=== PATIENT | male | born 1945 | race Caucasian/White ===

== ENCOUNTER 2018-07-27 13:21 | Emergency (ER) | payer OTHER, MEDICAID ==
[2018-07-27 13:32] VITALS: TEMP 98
[2018-07-27 15:00] LABS: APPEARANCE,URINE Slightly Cloudy; BILIRUBIN,URINE NEGATIVE (NEGATIVE); COLOR,URINE Yellow; GLUCOSE, URINE (UA) NEGATIVE (NEGATIVE); KETONES,URINE NEGATIVE (NEGATIVE); LEUKOCYTE ESTERASE ,URINE 2+ (NEGATIVE); NITRATE,URINE NEGATIVE (NEGATIVE); OCCULT BLOOD,URINE TRACE INTACT (NEG-TRACE); UROBILINOGEN,URINE 0.2 (0.2-1.0 EU)
[2018-07-27 15:05] LABS: BASOPHILS % (AUTO) 1 % (0-3); EOSINOPHILS % (AUTO) 2 % (0-9); HEMATOCRIT 32 % (39-53); HEMOGLOBIN 10.5 gm/dl (13.5-17.7); MEAN CORPUSCULAR HEMOGLOBIN 30.8 pg (27.0-32.0); MEAN CORPUSCULAR HGB CONC 32.9 gm/dl (32.0-36.0); MEAN CORPUSCULAR VOLUME 94 fL (80-100); MONOCYTES % (AUTO) 11.5 % (0-12); NEUTROPHILS % (AUTO) 60.7 % (37-80)
[2018-07-27 15:16] LABS: BACTERIA 1+ (< 1+); CRYSTALS NEGATIVE (0-3 AVE/HPF); EPITHELIAL CELLS 0-1 (SQUAMOUS); WBC,URINE 25-30 (0-5AV/HPF)
[2018-07-27 15:20] LABS: ALBUMIN 2.8 gm/dl (3.4-5.0); BILIRUBIN,TOTAL 0.2 mg/dl (0.2-1.0); CALCIUM 8.6 mg/dl (8.5-10.1); CARBON DIOXIDE 28.2 mEq/L (21-32); CREATININE 0.68 mg/dl (0.80-1.30); MAGNESIUM 1.8 mg/dl (1.8-2.4); POTASSIUM 3.9 mMol/L (3.5-5.1); TOTAL PROTEIN 6.7 gm/dl (6.4-8.2)
[2018-07-27] MEDS ORDERED: SODIUM CHLORIDE 0.9% 500 ML 500 ML IV ONE (15:58)
[2018-07-27] MEDS ORDERED: SODIUM CHLORIDE 0.9% 1000ML 1,000 ML IV SCH (16:00)
[2018-07-27] MEDS ORDERED: CEFTRIAXONE 1 GM PDS 1 GM in SODIUM CHLORIDE 0.9% 50 ML 50 ML IV ONE (16:00)
[2018-07-27] MEDS ORDERED: CEFTRIAXONE 1 GM PDS ONE (16:12)
[2018-07-27] MEDS ORDERED: SODIUM CHLORIDE 0.9% FLUSH 10 ML SOL IV PRN (16:31)
[2018-07-27 16:50] VITALS: RESP 16
[2018-07-27 19:37] VITALS: BP 151/79; PULSE 79; O2SAT 99
== END 2018-07-27 17:27 | disposition short-term general hospital (02) | DRG 92 ==
LOC: ED 13:21
DX: R29.818 Other symptoms and signs involving the nervous system (principal); N39.0 Urinary tract infection, site not specified; R53.1 Weakness; E86.0 Dehydration
CPT/HCPCS: 36415; 51798; 70450; 71045; 80053; 81001; 82550; 83735; 85025; 87040; 93005; 96365; 99070; 99284; 99285; J0696